=== PATIENT | female | born 1990 | race Caucasian/White ===

== ENCOUNTER 2016-10-06 10:52 | Emergency (ER) | payer OTHER ==
[~2016-10-06] VITALS: Ht 180.3 cm; Wt 113.1 kg
[2016-10-06 10:58] VITALS: BP 126/85; PULSE 77; RESP 18; TEMP 98.1; O2SAT 99
--- NOTE | 2016-10-06 11:11 | PD ---
HPI Chief Complaint: Complaint Time Seen by Provider: 11:10 Travel History International Travel<30 days: No Contact w/Intl Traveler<30days: No Traveled to known affect area: No History of Present Illness HPI 26-year-old female presents to MRSA department with 4 day history of urinary symptoms including burning, frequency, and mild flank pain on the left yesterday. Patient denies vaginal discharge or fever, chills, nausea, vomiting , or diarrhea. Patient has no known drug allergies. PFSH Past Medical History Medical History: Denies Significant Hx Diminished Hearing: No Immunizations Current: Yes Tetanus Vaccination: > 5 Years Influenza Vaccination: No ?: Not LMP: 10 days Past Surgical History Surgical History: No Previous Surgery Social History Alcohol Use: No Tobacco Use: No Substance Use: No Allergies-Medications (Allergen,Severity, Reaction): Coded Allergies: No Known Allergies (Unverified , 10/06/16) Reported Meds & Prescriptions Reported Meds & Active Scripts Active No Active Prescriptions or Reported Medications Review of Systems Except as stated in HPI: all other systems reviewed are Neg General / Constitutional: No: Fever, Chills Eyes: No: Visual changes HENT: No: Headaches Cardiovascular: No: Chest Pain or Discomfort Respiratory: No: Shortness of Breath Gastrointestinal: No: Nausea, Vomiting, Diarrhea, Abdominal Pain Genitourinary: Positive: Urgency, Frequency, Dysuria, Flank Pain (mild left- sided last night.), No: Pelvic Pain, Discharge Musculoskeletal: No: Pain Skin: No Rash Neurologic: No: Weakness Psychiatric: No: Depression Endocrine: No: Polydipsia Hematologic/Lymphatic: No: Easy Bruising Physical Exam Narrative GENERAL: Patient appears in no acute distress. SKIN: Warm and dry. Normal color. Normal turgor. HEAD: Atraumatic. Normocephalic. EYES: Pupils equal and round. No scleral icterus. No injection or drainage. ENT: No nasal bleeding or discharge. Mucous membranes pink and moist. Pharynx is normal. NECK: Trachea midline. Supple nontender. CARDIOVASCULAR: Regular rate and rhythm. RESPIRATORY: No accessory muscle use. Clear to auscultation. Breath sounds equal bilaterally. GASTROINTESTINAL: Abdomen soft, non-tender, nondistended. Hepatic and splenic margins not palpable. No CVA tenderness. MUSCULOSKELETAL: Extremities without clubbing, cyanosis, or edema. No obvious deformities. NEUROLOGICAL: Awake and alert. No obvious cranial nerve deficits. Motor grossly within normal limits. Five out of 5 muscle strength in the arms and legs. Normal speech. PSYCHIATRIC: Appropriate mood and affect; insight and judgment normal. Data Data Last Documented VS Vital Signs Date Time Temp Pulse Resp B/P Pulse Ox O2 Delivery O2 Flow Rate FiO2 10/06/16 10:58 98.1 77 18 126/85 99 Orders Urinalysis - C+S If Indicated (10/06/16 11:02) Urine Culture (10/06/16 11:00) Labs Laboratory Tests Test 10/06/16 11:00 Urine Collection Type CLEAN CATCH Urine Color STRAW Urine Turbidity SLIGHT Urine pH 6.0 Urine Specific [place] 1.007 Urine Protein NEG mg/dL Urine Glucose (UA) NEG mg/dL Urine Ketones NEG mg/dL Urine Occult Blood SMALL Urine Nitrite NEG Urine Bilirubin NEG Urine Leukocyte Esterase LARGE Urine RBC 4-9 /hpf Urine WBC 25-49 /hpf Urine WBC Clumps MOD Urine Squamous Epithelial 0-5 /hpf Cells Urine Renal Epithelial Cells 0-5 /hpf Urine Bacteria OCC /hpf Microscopic Urinalysis Comment CULTURE INDICATED Urine Collection Time 11:00 [facility] Medical Decision Making Medical Screen Exam Complete: Yes Emergency Medical Condition: Yes Differential Diagnosis Dysuria. Urinary frequency. Urinary tract infection. Narrative Course Urine is sent to the lab. Urine comes back suggestive of urinary tract infection. Patient will be treated with Keflex 500 mg 3 times a day 7 days. Patient is also given Pyridium 100 mg 3 times a day when necessary #12. Urine culture is pending. Patient should follow with her primary care physician or [facility] to ensure clearance. Patient can return to emergency Department with worsening symptoms as needed. Diagnosis Primary Impression: Urinary tract infection Qualified Code: N30.00 - Acute cystitis without hematuria Referrals: Primary Care Physician Patient Instructions: General Instructions Additional Instructions: Urine comes back suggestive of urinary tract infection. Patient will be treated with Keflex 500 mg 3 times a day 7 days. Patient is also given Pyridium 100 mg 3 times a day when necessary #12. Urine culture is pending. Patient should follow with her primary care physician or P[facility] INSPECTOR to ensure clearance. Patient can return to emergency Department with worsening symptoms as needed. Med/Other Pt SpecificInfo: Prescription(s) given Scripts No Active Prescriptions or Reported Meds Disposition: DISCHARGE HOME Condition: Stable Zechariah Rivera Oct 06, 2016 11:10
[2016-10-06 11:19] LABS: BLOOD, URINE SMALL (NEG); GLUCOSE,URINE NEG (NEG); KETONE, URINE NEG (NEG); NITRITE,URINE NEG (NEG)
[2016-10-06 11:23] LABS: METHOD OF COLLECTION CLEAN CATCH; URINE COLOR STRAW (YELLW/STRAW)
[2016-10-06 11:24] LABS: BACTERIA, URINE OCC /hpf; COMMENT (UR) CULTURE INDICATED; CULTURE IF INDICATED CULTURE INDICATED; RENAL EPITHELIAL CELLS 0-5 /hpf; SQUAMOUS EPITHELIAL CELL URINE 0-5 /hpf (0-5)
[2016-10-06] MEDS ORDERED: CEPH-460 PO (11:36)
[2016-10-06] MEDS ORDERED: PHEN0.4T PO (11:36)
[2016-10-27] MEDS ORDERED: CEPH-460 PO (15:57)
[2016-10-27] MEDS ORDERED: PYRI200T4 PO (15:57)
[2016-11-19] MEDS ORDERED: CEPH500C PO (15:24)
== END 2016-10-06 12:01 | disposition home or self-care (01) ==
LOC: PHEFT 10:52
DX: N39.0 Urinary tract infection, site not specified (principal); B96.20 Unspecified Escherichia coli [E. coli] as the cause of diseases classified elsewhere
CPT/HCPCS: 81001; 87077; 87086; 87186; 99283